=== PATIENT | male | born 1985 | race Caucasian/White ===

== ENCOUNTER 2016-09-27 13:36 | Emergency (ER) | payer OTHER ==
[2016-09-27 15:52] VITALS: BP 130/89
== END 2016-09-27 15:52 | disposition home or self-care (01) ==
LOC: ED 13:36
DX: S16.1XXA Strain of muscle, fascia and tendon at neck level, initial encounter (principal); S39.012A Strain of muscle, fascia and tendon of lower back, initial encounter; V49.40XA Driver injured in collision with unspecified motor vehicles in traffic accident, initial encounter; Y93.89 Activity, other specified; Y92.488 Other paved roadways as the place of occurrence of the external cause; Y99.8 Other external cause status